=== PATIENT | female | born 1955 | race Caucasian/White ===

== ENCOUNTER 2019-05-26 15:17 | Outpatient (CLI) | payer OTHER ==
--- NOTE | 2019-05-26 16:31 | MRI ---
LUMBAR SPINE MRI WITHOUT CONTRAST: 05/26/19 COMPARISON: None. HISTORY: Low back pain with spinal stenosis and neuropathy. TECHNIQUE: Multiplanar and multisequence MRI imaging of the lumbar spine is obtained without contrast. FINDINGS: The sagittal STIR imaging demonstrates no focal area of osseous marrow edema. On the basis of five mariela mbar type vertebral bodies, the conus medullaris terminates at the T12-L1 level. T12-L1: There is disc space narrowing and disc desiccation with mild anterior osteophyte formation an d mild disc bulge. No significant central canal or neural foraminal stenosis. L1-2: Disc space narrowing, disc desiccation and degenerative end plate change noted. Mild disc bulge . No central canal stenosis. No significant neural foraminal stenosis. L2-3: There is disc desiccation and mild bilateral facet hypertrophy with no significant central james l or neural foraminal stenosis. L2-3: Mild bilateral facet hypertrophy. No significant central canal or neural foraminal stenosis. L4-5: Bilateral facet hypertrophy. Disc space narrowing and disc desiccation with minimal disc bulge. No significant central canal or neural foraminal stenosis. L5-S1: There is disc space narrowing, disc desiccation, and mild disc bulge with a small central disc protrusion. No central canal or neural foraminal stenosis. The visualized retroperitoneal structures demonstrate no acute findings. IMPRESSION: Lumbar spine degenerative change as described above. POS: [facility]
== END 2019-05-26 15:18 | disposition home or self-care (01) ==
LOC: SCSMRI 15:17
PROVIDERS: ATTEND Family Medicine
DX: M48.062 Spinal stenosis, lumbar region with neurogenic claudication (principal); M54.9 Dorsalgia, unspecified; G61.82 Multifocal motor neuropathy; M47.816 Spondylosis without myelopathy or radiculopathy, lumbar region
CPT/HCPCS: 72148